=== PATIENT | male | born 1995 | race Two or more races ===

== ENCOUNTER 2025-01-24 12:50 | Emergency (ER) | payer OTHER ==
[~2025-01-24] VITALS: Ht 172.7 cm; Wt 89.4 kg
[2025-01-24 13:01] VITALS: TEMP 98.4
[2025-01-24] MEDS ORDERED: ONDANSETRON HCL/PF 4 MG/2 ML VIAL ONE ×2 (13:06→14:02)
[2025-01-24] MEDS: ONDANSETRON HCL/PF 4 MG/2 ML VIAL IVP ONE (13:22)
[2025-01-24] MEDS: IV NS 0.9% 500 ML BAG IV ONE (13:22)
[2025-01-24] MEDS ORDERED: ONDA4TAB5 PO (13:52)
[2025-01-24] MEDS: ONDANSETRON HCL/PF 4 MG/2 ML VIAL IV ONE (14:07)
[2025-01-24 14:11] VITALS: BP 132/92; O2SAT 97
[2025-01-25] MEDS ORDERED: BUPR8TAB4 SL (11:24)
[2025-01-25] MEDS ORDERED: NALO4SPR BNOSTRILS (11:24)
== END 2025-01-24 14:10 | disposition home or self-care (01) ==
LOC: ER 12:57
DX: F11.23 Opioid dependence with withdrawal (principal); Z60.2 Problems related to living alone
CPT/HCPCS: 99284; 96374; 96376; J2405 ×2; J7040

== ENCOUNTER 2025-01-25 10:48 | Emergency (ER) | payer OTHER ==
[~2025-01-25] VITALS: Ht 172.7 cm; Wt 89.4 kg
[~2025-01-25 10:48] MED LIST: ONDA4TAB5 PO
[2025-01-25] MEDS ORDERED: BUPRENORPHINE HCL 8 MG TAB.SUBL SL ONE (11:23)
[2025-01-25] MEDS ORDERED: NALO4SPR BNOSTRILS (11:24)
[2025-01-25] MEDS ORDERED: BUPR8TAB4 SL (11:24)
[2025-01-25] MEDS: BUPRENORPHINE HCL 8 MG TAB.SUBL SL ONE (11:25)
[2025-01-25 11:42] VITALS: BP 130/77; TEMP 98.5; O2SAT 98
== END 2025-01-25 11:44 | disposition home or self-care (01) ==
LOC: ER 10:48
DX: F11.23 Opioid dependence with withdrawal (principal); R11.2 Nausea with vomiting, unspecified; R19.7 Diarrhea, unspecified; Z79.899 Other long term (current) drug therapy; Z60.2 Problems related to living alone